=== PATIENT | male | born 1965 | race Caucasian/White ===

== ENCOUNTER 2021-12-04 00:53 | Emergency (ER) | payer OTHER ==
[~2021-12-04] VITALS: Ht 160 cm; Wt 62.6 kg
[2021-12-04 01:37] VITALS: BP 140/90
[2021-12-04] MEDS ORDERED: CIPR500T5 PO (02:37)
[2021-12-04] MEDS ORDERED: CLIN150C16 PO (02:37)
--- NOTE | 2021-12-04 03:07 | NUR ---
Patient discharged to home in stable condition. Written and verbal after care instructions given. Patient verbalizes understanding of instruction.
== END 2021-12-04 03:08 | disposition home or self-care (01) ==
LOC: EDUNIT# 00:53 → ER 00:59
DX: S61.211A Laceration without foreign body of left index finger without damage to nail, initial encounter (principal); W50.3XXA Accidental bite by another person, initial encounter; Y93.89 Activity, other specified; Y92.89 Other specified places as the place of occurrence of the external cause; Y99.8 Other external cause status